=== PATIENT | male | born 1950 | race Caucasian/White ===

== ENCOUNTER 2018-09-17 06:47 | Emergency (ER) | payer BC, MEDICARE ==
[2018-09-17] MEDS ORDERED: Ketorolac 30 MG/ML SDV IVPUSH ONE (07:09)
[2018-09-17] MEDS ORDERED: Ondansetron 4 MG/2 ML SDV IVPUSH ONE (07:10)
--- NOTE | 2018-09-17 07:40 | EDM.PDOC ---
ED HPI GENERAL MEDICAL PROBLEM - General Chief Complaint: Genitourinary Problem Stated Complaint: KIDNEY STONE Time Seen by Provider: 09/17/18 07:33 Source of Information: Reports: Patient, RN Notes Reviewed History Limitations: Reports: No Limitations - History of Present Illness INITIAL COMMENTS - FREE TEXT/NARRATIVE: 67-year-old gentleman presents emergency department today complaint of left- sided flank pain, he does have a history of nephrolithiasis he states this is very similar pain will become very intense and then relax. He is also complaining of nausea Left Flank Pain Score (Numeric/FACES): 10 - Related Data Allergies Allergy/AdvReac Type Severity Reaction Status Date / Time No Known Allergies Allergy Verified 09/17/18 07:11 Home Meds: Home Meds . [Unable to Verify Home Med List] 09/17/18 [History] Past Medical History Cardiovascular History: Reports: High Cholesterol Respiratory History: Reports: Sleep Apnea Other Respiratory History: c-pap Genitourinary History: Reports: BPH, Prostate Disorder, Renal Calculus Psychiatric History: Reports: Anxiety - Past Surgical History HEENT Surgical History: Reports: Adenoidectomy, Tonsillectomy Social & Family History - Tobacco Use Smoking Status *Q: Current Every Day Smoker Years of Tobacco use: 50 Packs/Tins Daily: 0.5 - Caffeine Use Caffeine Use: Reports: Coffee - Recreational Drug Use Recreational Drug Use: No ED ROS GENERAL - Review of Systems Review Of Systems: See Below Constitutional: Reports: No Symptoms HEENT: Reports: No Symptoms Respiratory: Reports: No Symptoms Cardiovascular: Reports: No Symptoms GI/Abdominal: Reports: Abdominal Pain, Nausea : Reports: Flank Pain ED EXAM, GI/ABD - Physical Exam Exam: See Below Exam Limited By: No Limitations General Appearance: Alert, WD/WN, No Apparent Distress Respiratory/Chest: No Respiratory Distress, Lungs Clear, Normal Breath Sounds, No Accessory Muscle Use, Chest Non-Tender Cardiovascular: Regular Rate, Rhythm, No Murmur GI/Abdominal Exam: Soft, Non-Tender Course - Vital Signs Last Recorded V/S: Last Vital Signs Temp 97.5 F 09/17/18 07:26 Pulse 75 09/17/18 08:30 Resp 16 09/17/18 08:30 BP 147/73 H 09/17/18 08:30 Pulse Ox 95 09/17/18 08:30 - Orders/Labs/Meds Orders: Active Orders 24 hr Category Date Time Status UA W/MICROSCOPIC [URIN] Urgent Lab 09/17/18 08:24 Received Meds: Medications Discontinued Medications Generic Name Dose Route Start Last Admin Trade Name Kunal PRN Reason Stop Dose Admin Ketorolac Tromethamine 30 mg 09/17/18 07:09 09/17/18 07:29 Toradol IVPUSH 09/17/18 07:10 30 mg ONETIME ONE Administration Ondansetron HCl 4 mg 09/17/18 07:10 09/17/18 07:29 Zofran IVPUSH 09/17/18 07:11 4 mg ONETIME ONE Administration Departure - Departure Time of Disposition: 08:46 Disposition: Home, Self-Care 01 Condition: Fair Clinical Impression: Kidney stone - Discharge Information Referrals: PCP,None [Primary Care Provider] - Forms: ED Department Discharge Additional Instructions: Continue to push fluids, use the ketorolac as needed for pain control, Please followup with your primary care provider in 3-5 days if not better, please call return to the emergency department with worsening of symptoms. - My Orders Last 24 Hours: My Active Orders 09/17/18 08:24 UA W/MICROSCOPIC [URIN] Urgent - Assessment/Plan Last 24 Hours: My Active Orders 09/17/18 08:24 UA W/MICROSCOPIC [URIN] Urgent Plan: Assessment Acuity = acute Site and laterality = 4.5 mm stone close to the UVJ left side with mild hydronephrosis Etiology = unclear etiology Manifestations = abdominal pain Location of injury = Home Lab values = CT scan describes on above Plan Because he is from out of town prescription written for Toradol 10 mg 1 tab by mouth 3 times a day when necessary total #20 CD of his images were provided he' ll follow up with his primary care upon returning home if no improvement This note was dictated using [employer] voice recognition software please call with any questions on syntax or grammar.
--- NOTE | 2018-09-17 08:22 | CRLCT ---
INDICATION: Left-sided flank pain. History of stones. TECHNIQUE: CT of abdomen and pelvis performed without oral or IV contrast. FINDINGS: Degenerative disc disease and narrowing L4 interspace. Mild to moderate disc bulging at L4 interspace. Mild interstitial fibrotic change in the lung bases with platelike areas of atelectasis or scarring. Tiny to intermediate size cysts in the liver. Multiple tiny and small bilateral renal calculi. Partially obstructing oval-shaped stone in the left UVJ measures 4 5 mm. This stone results in mild diffuse left ureteral dilatation and mild left hydronephrosis as well as diffuse small amounts of fluid and soft tissue stranding about the left ureter and kidney. Thickening of the left posterior bladder near the UVJ consistent with edema caused by the stone. The 3rd and 4th portions of the duodenum are very tortuous turning upon themselves and coursing to the right abdomen before then again coursing across midline to the left abdomen. Colonic diverticulosis. Mild prostatic enlargement. The appendix is moderately dilated. The appendix measures 1.1 cm in transverse diameter. Slight indistinctness of the borders the appendix. Cannot exclude a component of subacute or chronic appendicitis. Mild to moderate wall thickening involving the medial and inferior cecal wall. It would be prudent to obtain a followup contrast-enhanced CT to ensure there is not a component of ongoing on chronic/subacute appendicitis or obstruction of the appendix by a mucosal lesion in the cecum. This could also be correlated to colonic screening. Remainder negative. IMPRESSION: 1. 4-5 mm partially obstructing stone left UVJ resulting in mild hydronephrosis and other findings of ureteral obstruction as described above. 2. Multiple small bilateral renal calculi. 3. Appendix is moderately dilated and its borders are indistinct which could suggest a component of subacute or chronic appendicitis. Mild to moderate wall prominence involving the inferior medial cecum at the appendiceal orifice and extending for a few cm from it which could be related to edema but cannot exclude a mucosal lesion or abnormality. Suggest followup CT with IV and oral contrast and/or correlation with colonic screening to further evaluate and exclude a mucosal abnormality in the cecum and to further evaluate the appendix. Other findings as above. Please note that all CT scans at this facility use dose modulation, iterative reconstruction, and/or weight-based dosing when appropriate to reduce radiation dose to as low as reasonably achievable. Dictated by Celio Rose MD @ Sep 17 2018 8:19AM Signed by Dr. Celio Rose @ Sep 17 2018 8:21AM
== END 2018-09-17 09:03 | disposition home or self-care (01) ==
LOC: JP.ED 06:47
DX: N13.2 Hydronephrosis with renal and ureteral calculous obstruction (principal); F17.210 Nicotine dependence, cigarettes, uncomplicated; F41.9 Anxiety disorder, unspecified
CPT/HCPCS: 74176; 81001; 96374; 96375; 99284; J1885; J2405

== ENCOUNTER 2019-11-23 16:48 | Emergency (ER) | payer MEDICARE ==
[2019-11-23] MEDS ORDERED: diphenhydrAMINE 50 MG/ML SDV IVPUSH ONE (17:17)
--- NOTE | 2019-11-23 17:30 | EDM.PDOC ---
ED HPI GENERAL MEDICAL PROBLEM - General Chief Complaint: Chest Pain Stated Complaint: MEDICAL [facility]IA [facility] Time Seen by Provider: 11/23/19 17:20 Source of Information: Reports: Patient, Family History Limitations: Reports: Other (no old records) - History of Present Illness INITIAL COMMENTS - FREE TEXT/NARRATIVE: 68 yo male was stung by about 6 hornets about 2 hrs ago. Shortly after his sting he felt like he might pass out so he sat down on the ground. He had no SOB or itching or trouble swallowing at any time. No self tx. He did notice also about this time that he has some mild low chest tightness. He did run a short distance to get away from the bees. He has no hx of CAD. He presented to the [facility] and they pretty much just shipped him with stable vitals via EMS to the ER here. He lives in the [facility]. The clinic nor EMS started any tx. An EKG en route was normal. Onset: Today Onset Date: 11/23/19 Onset Time: 15:30 Duration: Hour(s): (2), Constant Location: Reports: Chest Quality: Reports: Dull Severity: Mild Improves with: Reports: None Worsens with: Reports: Other (? bee stings) Context: Reports: Other (See HPI) Associated Symptoms: Reports: Chest Pain. Denies: Rash, Shortness of Breath Treatments INTENSIVIST: Reports: Other (see below) (none) - Related Data Allergies Allergy/AdvReac Type Severity Reaction Status Date / Time No Known Allergies Allergy Verified 11/23/19 16:56 Home Meds: Home Meds DULoxetine [Cymbalta] 60 mg PO BID 11/23/19 [History] NIFEdipine [Procardia] 1 tab PO BID 11/23/19 [History] Rivaroxaban [Xarelto] 1 tab PO DAILY 11/23/19 [History] Tamsulosin HCl 1 tab PO DAILY 11/23/19 [History] traZODone 100 mg PO BEDTIME 11/23/19 [History] Past Medical History Cardiovascular History: Reports: High Cholesterol Respiratory History: Reports: Sleep Apnea Other Respiratory History: c-pap Genitourinary History: Reports: BPH, Prostate Disorder, Renal Calculus Psychiatric History: Reports: Anxiety - Infectious Disease History Infectious Disease History: Reports: Chicken Pox, Measles, Mumps - Past Surgical History HEENT Surgical History: Reports: Adenoidectomy, Tonsillectomy Social & Family History - Tobacco Use Smoking Status *Q: Former Smoker Years of Tobacco use: 30 Used Tobacco, but Quit: Yes Month/Year Tobacco Last Used: 02/2020 - Caffeine Use Caffeine Use: Reports: Coffee - Recreational Drug Use Recreational Drug Use: No ED ROS GENERAL - Review of Systems Review Of Systems: See Below Constitutional: Reports: No Symptoms HEENT: Reports: No Symptoms Respiratory: Reports: No Symptoms Cardiovascular: Reports: Chest Pain, Lightheadedness (resolved before presentation) Endocrine: Reports: No Symptoms GI/Abdominal: Reports: No Symptoms : Reports: No Symptoms Musculoskeletal: Reports: No Symptoms Skin: Reports: No Symptoms Neurological: Reports: No Symptoms ED EXAM, GENERAL - Physical Exam Exam: See Below Exam Limited By: No Limitations General Appearance: Alert, WD/WN, No Apparent Distress Eye Exam: Bilateral Eye: Normal Inspection Ears: Normal External Exam, Normal Canal, Hearing Grossly Normal Ear Exam: Bilateral Ear: Auricle Normal, Canal Normal Nose: Normal Inspection, Normal Mucosa, No Blood Throat/Mouth: Normal Inspection, Normal Lips, Normal Oropharynx, Normal Voice, No Airway Compromise Head: Atraumatic, Normocephalic Neck: Normal Inspection Respiratory/Chest: No Respiratory Distress, Lungs Clear, Normal Breath Sounds, No Accessory Muscle Use, Chest Non-Tender Cardiovascular: Regular Rate, Rhythm, No Edema GI/Abdominal: Normal Bowel Sounds, Soft, Non-Tender, No Distention Extremities: Normal Inspection, Normal Range of Motion, Non-Tender, No Pedal Edema Neurological: Alert, Oriented, CN II-XII Intact, Normal Cognition, No Motor/Sensory Deficits Psychiatric: Normal Affect, Normal Mood Skin Exam: Warm, Dry, Intact, Normal Color, No Rash EKG INTERPRETATION EKG Date: 11/23/19 Time: 16:05 Rhythm: NSR Rate (Beats/Min): 83 [place]: Normal P-Wave: Present QRS: Normal ST-T: Normal QT: Normal Comparison: NA - No Prior EKG Course - Vital Signs Last Recorded V/S: Last Vital Signs Temp 35.9 C L 11/23/19 17:15 Pulse 82 11/23/19 18:07 Resp 17 11/23/19 18:07 BP 148/98 H 11/23/19 18:22 Pulse Ox 98 11/23/19 18:07 - Orders/Labs/Meds Orders: Active Orders 24 hr Category Date Time Status Cardiac Monitoring [RC] .As Directed Care 11/23/19 17:28 Active Labs: Laboratory Tests 11/23/19 Range/Units 17:41 Troponin I < 0.017 (0.000-0.056) ng/mL Meds: Medications Discontinued Medications Generic Name Dose Route Start Last Admin Trade Name Kunal PRN Reason Stop Dose Admin Al Hydroxide/Mg Hydroxide 15 0 ml 11/23/19 18:29 11/23/19 18:42 ml/ Lidocaine HCl 15 ml PO 11/23/19 18:30 15 ml ONETIME ONE Administration Diphenhydramine HCl 50 mg 11/23/19 17:17 11/23/19 17:26 Benadryl IVPUSH 11/23/19 17:18 50 mg ONETIME ONE Administration Nitroglycerin 0.4 mg 11/23/19 17:59 11/23/19 18:22 Nitrostat SL 11/23/19 18:00 0.4 mg ONETIME ONE Administration - Re-Assessments/Exams Free Text/Narrative Re-Assessment/Exam: 11/23/19 18:00 No change in sx's with diphenhydramine IV, will try NTG. Free Text/Narrative Re-Assessment/Exam: 11/23/19 18:30 No change with NTG SL, will try a GI cocktail Free Text/Narrative Re-Assessment/Exam: 11/23/19 18:51 No change with GI cocktail po Departure - Departure Time of Disposition: 18:51 Disposition: Home, Self-Care 01 Condition: Good Clinical Impression: Nonspecific chest pain Instructions: Nonspecific Chest Pain, Adult, [id number] Referrals: PCP,None [Primary Care Provider] - Forms: ED Department Discharge Additional Instructions: Take acetaminophen as needed for pain relief. Return if worse or not improving. Sepsis Event Note (ED) - Evaluation Sepsis Screening Result: No Definite Risk - Focused Exam Vital Signs: Vital Signs Temp Pulse Resp BP BP Pulse Ox 11/23/19 18:22 148/98 H 11/23/19 18:07 82 17 148/98 H 98 11/23/19 17:28 80 157/91 H 11/23/19 17:27 81 23 H 159/93 H 96 11/23/19 17:15 35.9 C L 78 16 148/92 H 96 11/23/19 17:03 35.9 C L 78 16 148/92 H 96 - My Orders Last 24 Hours: My Active Orders 11/23/19 17:28 Cardiac Monitoring [RC] .As Directed - Assessment/Plan Last 24 Hours: My Active Orders 11/23/19 17:28 Cardiac Monitoring [RC] .As Directed
[2019-11-23] MEDS ORDERED: Nitroglycerin 0.4 MG Tab.SL SL ONE (17:59)
[2019-11-23] MEDS ORDERED: Alum Hydrox/Mag Hydrox/Simeth 15 ML, Lidocaine 2% 15 ML PO ONE ×2 (18:29)
== END 2019-11-23 19:10 | disposition home or self-care (01) ==
LOC: JP.ED 16:48
DX: R07.89 Other chest pain (principal); F41.9 Anxiety disorder, unspecified; Z79.899 Other long term (current) drug therapy; Z79.01 Long term (current) use of anticoagulants; Z87.891 Personal history of nicotine dependence
CPT/HCPCS: 36415; 84484; 96374; 99285; A9270; J1200